=== PATIENT | male | born 1960 | race African-American/Black ===

== ENCOUNTER 2024-09-23 07:59 | Outpatient (AMB) | payer OTHER, MEDICARE, SELFPAY ==
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
[2024-09-23 08:05] VITALS: BMI 35.2
== END 2024-09-23 08:21 | disposition home or self-care (01) ==
PROVIDERS: Visit Provider Orthopaedic Surgery
DX: M25.512 Pain in left shoulder (principal)
CPT/HCPCS: 99213; G2211

== ENCOUNTER 2024-09-23 15:47 | Outpatient (REF) | payer OTHER, MEDICARE, SELFPAY | END 2024-09-23 15:48 | disposition home or self-care (01) | LOC: HO.HOSX 15:47 | PROVIDERS: Visit Provider Orthopaedic Surgery | DX: M75.42 Impingement syndrome of left shoulder (principal) | CPT/HCPCS: 73030 ==

== ENCOUNTER 2024-09-28 18:18 | Outpatient (REF) | payer OTHER, MEDICARE, SELFPAY | END 2024-09-28 18:19 | disposition home or self-care (01) | LOC: HO.MRI 18:18 | PROVIDERS: PCP Internal Medicine; Visit Provider Orthopaedic Surgery | DX: M25.312 Other instability, left shoulder (principal) | CPT/HCPCS: 73221 ==

== ENCOUNTER → 2024-09-28 18:18 | Outpatient (BNV) | payer OTHER, MEDICARE, SELFPAY | PROVIDERS: PCP Internal Medicine; Visit Provider Radiology Diagnostic Radiology | DX: M75.102 Unspecified rotator cuff tear or rupture of left shoulder, not specified as traumatic (principal); M19.012 Primary osteoarthritis, left shoulder | CPT/HCPCS: 73221 ==

== ENCOUNTER 2024-10-16 11:24 | Outpatient (AMB) | payer OTHER, MEDICARE, SELFPAY ==
--- NOTE | 2024-10-16 11:30 | MHC.OFFVIS ---
Vital Signs 10/16/24 11:31 Height 5 ft 10 in Weight 245 lb BMI 35.2 Intake Visit Reasons: Left shoulder pain Intake Note: Adonay is a 64 year old male who presents for follow-up of his left shoulder pain. The patient states that he did have a cortisone injection into his left shoulder in the past. The injection gave him fairly good relief but he found the injection to be quite painful. He continues to go to physical therapy. The patient states that he notices the pain in his shoulder mostly when he is sleeping on his left side. The patient states that he does not like taking pills for the pain. He has tried Tylenol and tramadol which gave him only mild relief. He is not able to take anti-inflammatory medicines because of kidney disease. Allergies morphine Allergy (Unknown, Verified 09/23/24 08:08) Unknown Medication List - Last Reconciled 10/16/24 by Lokesh Boles MD baclofen 10 mg PO BID chlorthalidone 25 mg PO DAILY cholecalciferol (vitamin D3) 50 mcg PO DAILY metformin 1,000 mg PO DAILY omeprazole 20 mg PO DAILY pioglitazone 45 mg PO DAILY semaglutide (Ozempic) mg subcut tadalafil 5 mg PO tamsulosin 0.4 mg PO DAILY valsartan 80 mg PO DAILY Physical Exam Vital Signs: BMI result Body Mass Index 35.2 Extrem Other: Left shoulder examination shows slightly decreased range of motion when compared to his right shoulder, 4+ out of 5 strength with supraspinatus testing, mild tenderness over his proximal humerus, no instability Results Reviewed Results Reviewed: MRI of the patient's left shoulder shows no evidence of rotator cuff tearing or labral tearing, mild to moderate acromioclavicular joint narrowing, signal change within the proximal humerus due to bone bruising Assessment & Plan Assessment & Plan (1) Left shoulder pain: Code(s): M25.512 - Pain in left shoulder Category: Medical Plan Mr. Celestin presents with left shoulder pain due to a bone bruise of his proximal humerus. I had a lengthy discussion with the patient regarding the treatment options. At this point there is no indication for surgical intervention. The patient can continue with his physical therapy exercises. He should avoid any exercises that cause significant discomfort. The do's and don'ts of lifting were discussed at length with the patient. The patient wishes to hold off on a cortisone injection for now. He will continue taking Tylenol or tramadol for his discomfort. He will follow up with me on an as-needed basis should his symptoms not plateau at an unacceptable level over the next few months. Feel free to call me at any time should questions regarding his orthopedic management arise. I spent 20 minutes in reviewing the patient's records and imaging studies, seeing the patient and documenting in the medical record. Coding Level of Care Code Est Pt Level 3 (57249) Complex EM visit Add On G2211 Diagnoses Left shoulder pain M25.512
[2024-10-16 11:31] VITALS: BMI 35.2
== END 2024-10-16 11:46 | disposition home or self-care (01) ==
PROVIDERS: PCP Internal Medicine; Visit Provider Orthopaedic Surgery
DX: M25.512 Pain in left shoulder (principal)
CPT/HCPCS: 99213; G2211

== ENCOUNTER → 2024-10-16 11:24 | Outpatient (BNVA) | payer OTHER, MEDICARE, SELFPAY | PROVIDERS: PCP Internal Medicine; Visit Provider Orthopaedic Surgery ==

== ENCOUNTER 2025-02-12 14:41 | Outpatient (AMB) | payer MEDICARE, MEDICAID, SELFPAY ==
[2025-02-12 14:44] VITALS: BP 152/88; BMI 36.3
--- NOTE | 2025-02-12 14:44 | A.OFFVIS_ITS ---
Vital Signs 02/12/25 14:44 Height 5 ft 10 in Weight 253 lb BMI 36.3 BP 152/88 H Blood Pressure Location Rt brachial Position Sitting Intake Visit Reasons: ENP - Tremors right hand Intake Note: Patient referred for tremors Allergies morphine Allergy (Unknown, Verified 02/12/25 14:48) Unknown Medication List - Last Reconciled 02/12/25 by Suzanne Tan MD baclofen 10 mg PO BID chlorthalidone 25 mg PO DAILY cholecalciferol (vitamin D3) 50 mcg PO DAILY metformin 1,000 mg PO DAILY omeprazole 20 mg PO DAILY pioglitazone 45 mg PO DAILY semaglutide (Ozempic) mg subcut tadalafil 5 mg PO tamsulosin 0.4 mg PO DAILY valsartan 80 mg PO DAILY HPI Comments Details: 64y/o Right handed male comes for evaluation of tremors. He started noticing action tremors in his Right hand especially when he is writing. The tremors are intermittent , worsens with stress , anxiety. He also notices when he is eating or drinking any activity that needs fine motor coordination. He has not noticed tremors in his left hand. He denies neck pain . His sister has a diagnosis of parkinsons. No problems with gait , no issues with memory . He has on and off sleep issues - frequent arousals , he has sleep apnea on CPAP. No known head or neck injury He denies any numbness or tingling. [facility] Medical History (Updated 02/12/25 @ 15:23 by Suzanne Tan MD) Focal dystonia MEDINA on CPAP Coarse tremors HTN (hypertension) Diabetes Surgical History H/O knee surgery Hx of appendectomy Family History Brother HTN (hypertension) Diabetes Sister Diabetes HTN (hypertension) Social History Alcohol intake: current Patient Tobacco Use Status: Never used Tobacco Physical Exam Vital Signs: Last Vital Signs BP 152/88 H 02/12/25 14:44 BMI result Body Mass Index 36.3 Const Orientation/consciousness: patient oriented x3 Eyes Pupils: Equal, round and reactive pupils present Neuro Other: Right forearm flexors are activated when he starts tow rite c/w possible focal dystonia General: patient oriented x3, gait normal, tone normal, moves all extremities and no focal motor deficits Cranial nerves: Yes Equal, round and reactive pupils present, Yes Bilaterally intact EOM present, Yes Nystagmus not present, Yes Normal facial strength present, Yes Midline tongue present, Yes Symmetric palate elevation present and Yes Ability to bilaterally elevate shoulders present Cognition (Neuro): normal cognition Gait exam (Neuro): Normal gait present Motor exam (neuro): 5/5 motor strength present throughout and Normal motor muscle tone present throughout Deep tendon reflexes (DTR's): Right triceps reflex intensity grade: 1+, Left triceps reflex intensity grade: 1+, Rt Biceps (C5, C6): 1+, Left biceps reflex intensity grade: 1+, Right brachioradialis reflex intensity grade: 1+, Left brachioradialis reflex intensity grade: 1+, Right patellar reflex intensity grade: 1+ and Left patellar reflex intensity grade: 1+ Coordination: [id number] test normal Assessment & Plan Assessment & Plan (1) Coarse tremors: Comment: likely a focal dystonia - writers cramp Code(s): G25.2 - Other specified forms of tremor Category: Medical (2) MEDINA on CPAP: Code(s): G47.33 - Obstructive sleep apnea (adult) (pediatric) Category: Medical Plan He is not sure if he is taking baclofen I will refer him for OT - hand therapy EMG Right UE to evaluate dystonia will consider botox. Orders: Orders OT Evaluation and Treatment Today G25.2 - Other specified forms of tremor NE nerve conduction velocity Today G24.8 - Other dystonia NE electromyogram (EMG) Today G24.9 - Dystonia, unspecified Coding Level of Care Code New Pt Level 4 (15771) Diagnoses Coarse tremors G25.2 MEDINA on CPAP G47.33
--- OUTSIDE RECORDS SUMMARY | 2025-02-12 15:29 | XMS_ITS | Encounter Summary ---
Author Organization [facility] Address [address] [facility] [address] [place] [address] Phone Care Team Providers Care Glue Jointer Operator Name Role Phone Tito Ritter MD Primary Care Provider [phone] Encounter Details Date Type Department Care Team (Late Contact Info) Description 01/31/2021 Orders Only [facility] [address] [facility] [address] [place] [id number] Provider, MD Rosanna [address] [place], [place] [id number] Social History Tobacco Use Types Packs/Day Years Used Date Smoking Tobacco: Former Alcohol Use Standard Drinks/Week Comments Yes 0 (1 standard drink = 0.6 oz pure alcohol) Alcoholic Drinks/day: Occasional social drink Sex and Gender Information Value Date Recorded Sex Assigned at Not on file Legal Sex Male 4:51 PM EST Gender Identity Not on file Sexual Orientation Not on file documented as of this encounter Plan of Treatment Upcoming Encounters Date Type Department Care Team (Late Contact Info) Description 04/27/2025 10:15 AM EDT Office Visit [facility] [address] [id number] Mary Hayden ARNP [address] [phone] documented as of this encounter Procedures Procedure Name Priority Date/Time Associated Diagnosis Comments EXT RESULT ENTRY Routine 12/29/2020 EXT RESULT ENTRY Routine 12/22/2020 documented in this encounter Results * EXT RESULT ENTRY (12/29/2020) us Historical Provider LAB BLOOD ORDERABLES Ciara l Result * EXT RESULT ENTRY (12/22/2020) us Historical Provider LAB BLOOD ORDERABLES Ciara l Result documented in this encounter Visit Diagnoses Not on filedocumented in this encounter Care Teams Glue Jointer Operator Relationship Specialty Start Date End Date Tito Ritter MD [address] [place] [address] PCP - General 10/11/20 documented as of this encounter
--- OUTSIDE RECORDS SUMMARY | 2025-02-12 15:29 | XMS_ITS | Clinical Summary ---
Author Organization [address] Address [address] [place], [place] Phone Care Team Providers Care Trauma Therapist Name Role Phone Tito Ritter MD Primary Care Provider [phone] Allergies Active Allergy Reactions Criticality Noted Date Comments Empagliflozin Rash Low 05/28/2023 Lisinopril Swelling High 07/15/2020 Lips swollen / side of face 07/05/20/ [facility] urgent care Morphine Hallucinations,Other 12/01/2020 Medications lidocaine (LIDODERM) 5 % patch Apply 1 patch topically. 4 Active tamsulosin (FLOMAX) 0.4 mg 24 hr capsule Take 1 Capsule by mouth daily. Take 30 mins after same meal every day. 0 Active cholecalciferol (VITAMIN D-3) 50 mcg (2,000 unit) tablet Take 1 tablet (2,000 Units total) by mouth 1 (one) time each day. 4 Active tadalafiL (CIALIS) 5 mg tablet TAKE 1 TABLET BY MOUTH 45 MINUTES BEFORE INTENDED ACTIVITY 1 Active diclofenac (VOLTAREN) 1 % topical gel Apply 1 g topically 3 times daily as needed (pain). 3 Active blood sugar diagnostic (FreeStyle Lite Strips) test strip Inject 1 Device into the skin daily. 2 Active FREESTYLE LANCETS MISC 1 Each by Does not apply route daily 2 Active atorvastatin (LIPITOR) 40 mg tablet Take 1 tablet (40 mg total) by mouth 1 (one) time each day. 2 Active alcohol swabs pads, medicated Alcohol Swabs (Alcohol Pads) 70 % Pads 1 Each by Does not apply route 4 times daily. 2 Active blood-glucose meter kit Use to test blood sugar daily 2 Active valsartan (DIOVAN) 40 mg tablet Take 1 tablet (40 mg total) by mouth 1 (one) time each day. Active omeprazole (PriLOSEC) [address] capsule Take 1 capsule by mouth once daily 90 capsule 1 5 Active chlorthalidone (HYGROTON) 25 mg tablet Take 1 tablet by mouth once daily 90 tablet 1 5 Active metFORMIN (GLUCOPHAGE) 1,000 mg tablet 1 tab daily with breakfast 5 Active semaglutide (Ozempic) 2 mg/dose (8 mg/3 mL) injection pen Inject 2 mg under the skin every 7 (seven) days. 3 mL 11 5 Active Active Problems Problem Noted Date Diagnosed Date Ascending aorta dilation (CMS/HCC V24) 5 Overview (01/05/2025): - 4.1cm 11/2023 Assessment & Plan (01/05/2025 12:31 PM EDT): The patient's ascending aorta size has been stable across multiple echos. Follow on upcoming echo that has been ordered. Chest pain 10/16/2023 COVID 02/23/2023 Overview (08/21/2024): Positive covid home test 02/23/23 Valvular incompetence 01/24/2021 Overview (01/05/2025): - Historically reported mod-severe AI - cath showed only mild to moderate AI - echo 11/2023 showing normal LVEF 60 to 65%, mild concentric LVH, no wall motion abnormalities, normal LV size, trace to mild AI, aortic sclerosis without stenosis with aortic root likely at upper limits of normal for body surface area 3.9 cm, ascending aorta measuring anywhere from 4 to 4.1 cm, all similar to echocardiogram 11/2021 Assessment & Plan (01/05/2025 12:29 PM EDT): The patient's AI was not significant on his last echo in 2023. Will update his echo to follow his AI. He does not have any symptoms referable to AI. Nephrotic syndrome 10/17/2018 Terminal ileitis ([facility] V24, [facility] V28) 05/02 Lipoma 04/26/2018 Esophageal stricture 04/17/2018 Malignant carcinoid tumor of appendix ([facility] V24, [facility] V28) 04/16/2018 Eczema 03/13/2018 Diverticulosis 03/13/2018 Type 2 diabetes mellitus wit hout complication ([facility] V24, [facility] V28) 03/13/2018 Chronic atrophic gastritis 12/18/2017 Hypoalbuminemia 11/20/2017 Constipation 10/23/2017 Hyperlipidemia 09/14/2017 Assessment & Plan (01/05/2025 12:30 PM EDT): Well controlled lipid profile on current dose statin. Continue Hypertension 09/14/2017 Assessment & Plan (01/05/2025 12:28 PM EDT): Patient's blood pressure is somewhat robust in office today, but overall better controlled on chart review. Recommend increasing his exercise/focus movement and following his blood pressure. If needed, could increase his valsartan to 80 mg daily for better blood pressure control AAA (abdominal aortic aneurysm) ([facility] V24) MEDINA (obstructive sleep apnea) 09/14/2017 Aortic insufficiency 09/14/2017 Overview (08/21/2024): Hospitalized 08/2017 for CP and AI: ECHO PVCA: LVEF 60-65%, mod-severe AI, 1+ MR,ascending aorta size 3.8 cm, tansverse aorta 3.2 cm, LV end diastolic dimension 51cm, LV systolic diameter was 3.[address] Franki Hook [facility] no obstructive CAD, mild- mod AR GERD (gastroesophageal reflux disease) 7 Irritable bowel syndrome 11/14/2013 Severe obesity (BMI 35.0-35. 9 with comorbidity) ([facility] V24, [facility] V28) Encounters Date Type Department Care Team Description 01/05/2025 9:10 AM EDT Office Visit [facility] - [facility] [address] [place] [address] Lorraine Redman NP Ascending aorta dilation ([facility] V24) (Primary Dx); Primary hypertension; Pure hypercholesterolemia; Nonrheumatic aortic valve insufficiency; Valvular incompetence 12/23/2024 9:30 AM EDT Office Visit Endocrinology - [address] [phone] Leanne Singh PA Type 2 diabetes mellitus without complication, with long-term current use of insulin ([facility] V24, [facility] V28) (Primary Dx) 12/12/2024 10:00 AM EDT Telemedicine Internal Medicine - [address] [phone] Encounter for subsequent annual wellness visit (AWV) in Medicare patient (Primary Dx) 12/02/2024 Telephone Endocrinology - [id number] [place] [phone] Leanne Singh PA PRIOR AUTHORIZATION from Last 3 Months Immunizations Name Administration Dates Next Due Influenza trivalent, 0.5mL (Fluad) 65yo and olde r 06/16/2024 Tauntr SARS-CoV-2 COVID-19, mRNA, LNP-S, preservative free 12/08/2020,11/17/2020 Tdap Tetanus diptheria acell ular pertussis (Boostrix; Adacel) 7yo and older 03/23/2011 Surgical History Surgery Date Site/Laterality Comments CARDIAC CATHETERIZATION PROCEDURE: HISTORICAL CARDIAC CATH; COMMENT: no obstructive disease , Dr Hook , ? 2017 KNEE ARTHROSCOPY W/ DEBRIDEMENT PROCEDURE: DE ARTHRS KNEE DEBRIDEMENT/SHAVING ARTCLR CRTLG TOTAL KNEE ARTHROPLASTY Right PROCEDURE: DE ARTHRP KNE CONDYLE&PLATU MEDIAL&LAT COMPARTMENTS Medical History Medical History Date Comments AAA (abdominal aortic aneury sm) ([facility] V24) 09/14/2017 DX:AAA (abdominal aortic ane urysm) ([facility]) Aortic insufficiency 09/14/2017 DX:Aortic i nsufficiency; COMMENT: Hospitalized 08/2017 for CP and AI: ECHO PVCA: LVEF 60-65%, mod-severe AI, 1+ MR,ascending aorta size 3.8 cm, tansverse aorta 3.2 cm, LV end diastolic dimension 51cm, LV systolic diameter was 3.[address] Franki Hook [facility] no obstructive CAD, mild- mod AR GERD (gastroesophageal reflux disease) 7 DX:GERD (gastroesophageal reflux disease) History of diverticulitis 09/14/2017 DX:His tory of diverticulitis Hyperlipidemia 09/14/2017 DX:Hyperlipidemi a Hypertension 09/14/2017 DX:Hypertension MEDINA (obstructive sleep apnea) 09/14/2017 DX :MEDINA (obstructive sleep apnea) Type 2 diabetes mellitus wit hout complication ([facility]/HCC V24, CMS/HCC V28) 03/13/2018 DX:Type 2 diabetes mellitus without complication (HCC) Terminal ileitis (CMS/HCC V2 4, CMS/HCC V28) 05/22/2018 DX:Terminal ileitis (HCC) Nephrotic syndrome 10/17/2018 DX:Nephrotic syndrome Malignant carcinoid tumor of appendix (CMS/[facility] V24, [facility] V28) 04/16/2018 DX:Malignant carcinoid tumo r of appendix (HCC) Lipoma 04/26/2018 DX:Lipoma Irritable bowel syndrome 11/14/2013 DX:Irri table bowel syndrome Hypoalbuminemia 11/20/2017 DX:Hypoalbuminem ia Esophageal stricture 04/17/2018 DX:Esophage al stricture Eczema 03/13/2018 DX:Eczema Diverticulosis 03/13/2018 DX:Diverticulosi s Constipation 10/23/2017 DX:Constipation Chronic atrophic gastritis 12/18/2017 DX:Ch ronic atrophic gastritis Family History Medical History Relation Name Comments Stroke Brother x8 3 No Known Problems Daughter x2 Prostate cancer Father Heart failure Mother Breast cancer Other 1 Dementia Other 1 Diabetes Other 1 No Known Problems Son x2 Relation Name Status Comments Brother x8 3 Other Daughter x2 Alive Father Mother Other 1 Alive Sister x4 Alive Son x2 Alive Social History Tobacco Use Types Packs/Day Years Used Date Smoking Tobacco: Former Smokeless Tobacco: Never Tobacco Cessation:Counseling Given: Not Answered Alcohol Use Standard Drinks/Week Comments Yes 0 (1 standard drink = 0.6 oz pur e alcohol) socially Housing Instability Answer Date Recorde d Are you worried that in the next 2 months you may not have stable housing? No 12/12/2024 Food Access & Nutrition Answer Date Rec orded Do you have access to a vari ety of food including fruits and vegetables? Yes 12/12/2024 Health Literacy Answer Date Recorded How often do you need to hav e someone help you when you read instructions, pamphlets, or other written material from your doctor or pharmacy? Never 12/12/2024 Caregiver: How often do you need to have someone help you when you read instructions, pamphlets, or other written material from your doctor or pharmacy? Not on file 12/12/2024 Financial Risk Answer Date Recorded How hard is it for you to pa y for the very basics like food, housing, medical care, and air conditioning / heating? Not very hard 12/12/2024 Transportation Answer Date Recorded Has the lack of transportati on kept you from meetings, work, or from getting things needed for daily living? No Has the lack of transportati on kept you from medical appointments or from getting medications? No 12/12/2024 Social Isolation Answer Date Recorded How often do you feel lonely or isolated from th ose around you? Never 12/12/2024 Food Risk Answer Date Recorded Within the past 12 months we worried whether our food would run out before we got money to buy more. Never true 12/12/2024 Within the past 12 months th e food we bought just didn't last and we didn't have money to get more. Never true 12/12/2024 Dependent Care Answer Date Recorded Do you need help finding or paying for care for your loved ones. For example, special needs child caregiver or elderly care for an older adult? No 12/12/2024 Education Answer Date Recorded Do you think completing more education or training, like finishing a GED, going to college, or learning a trade, would be helpful for you? No 12/12/2024 Employment and Income Answer Date Recor ded During the last four weeks, have you been actively looking for work? No 12/12/2024 Living Situation Answer Date Recorded What is your living situation? 0 12/12/2024 Sex and Gender Information Value Date Recorded Sex Assigned at Not on file Legal Sex Male 11:32 PM EST Gender Identity Not on file Sexual Orientation Not on file Obstetrics History Last Filed Vital Signs Vital Sign Reading Time Taken Comments Blood Pressure 138/86 01/05/2025 9:06 AM EDT Pulse 75 01/05/2025 9:06 AM EDT Temperature 36.6 ??C (97.9 ??F) 12/23/2024 9:35 AM ED T Respiratory Rate 14 12/23/2024 9:35 AM EDT Oxygen Saturation 98% 01/05/2025 9:06 AM EDT Inhaled Oxygen Concentration - - Weight 115 kg (254 lb 6.4 oz) 01/05/2025 9:06 AM EDT Height 177.8 cm (5' 10 ) 01/05/2025 9:06 AM EDT Body Mass Index 36.5 01/05/2025 9:06 AM EDT Plan of Treatment Upcoming Encounters Date Type Department Care Team (Late st Contact Info) Description 03/25/2025 10:30 AM EDT Ancillary Procedure [facility] - [address] [place] [address] 06/25/2025 9:30 AM EDT Office Visit Endocrinology - [id number] [place] [phone] Leanne Singh PA [address] [place] [address] Health Maintenance Due Date Last Done Comments Pneumococcal Vaccine: 50+ Years (1 of 2 - PCV) 1977 RSV Immunization Adult Patients (1 - Risk 60-74 years 1-dose series) 2018 DTaP,Tdap,and Td Vaccines (2 - Td or Tdap) 03/23/2021 03/23/2011 Hepatitis C Screening 09/09/2022 Zoster Vaccines (2 of 2) 10/03/2023 08/08/2023 COVID-19 Vaccine ( season) 2024 09/04/2023, 02/11/2022, 08/09/2021, Additional history exists Diabetes: Annual Foot Exam 11/23/2024 11/23/2023 Diabetes: Annual Retina Eye Exam 06/24/2025 06/24/2024 Diabetes: Blood Sugar Control Test (HGBA1C) 06/28/2025 12/26/2024, 06/09/2024, 06/09/2024, Additional history exists Depression Screening 12/12/2025 12/12/2024, 10/29/19 24 Falls Risk Assessment 12/12/2025 12/12/2024, 024 Medicare Annual Wellness Visit 12/12/2025 12/12/2024 Social Influencers of Health Screening 12/12/2025 12/12/2024 Diabetes: Annual Urine Albumin-Creatinine Ratio (uACR) 12/26/2025 12/26/2024, 06/09/2024 Diabetes: Annual GFR (Glomerular Filtration Rate) 12/26/2025 12/26/2024, 12/26/2024, 06/09/2024, Additional history exists Hypertension/CHF/CAD Annual BMP Blood Test 12/26/2025 12/26/2024, 12/26/2024, 06/09/2024, Additional history exists Cholesterol Screening (Lipid Panel) 12/26/2029 12/26/2024, 06/09/2024, 06/09/2024 Colorectal Cancer Screening: Colonoscopy 04/20/2031 04/20/2021 Influenza Vaccine Completed 06/16/2024, , 06/18/2022, Additional history exists HIB Vaccines Aged Out No longer eligi ble based on patient's age to complete this topic HPV Vaccines Aged Out No longer eligi ble based on patient's age to complete this topic Hepatitis A Vaccines Aged Out No long er eligible based on patient's age to complete this topic Hepatitis B Vaccines Aged Out No long er eligible based on patient's age to complete this topic IPV Vaccines Aged Out No longer eligi ble based on patient's age to complete this topic MMR Vaccines Aged Out No longer eligi ble based on patient's age to complete this topic Meningococcal ACWY Vaccine Aged Out N o longer eligible based on patient's age to complete this topic Meningococcal B Vaccine Aged Out No l onger eligible based on patient's age to complete this topic RSV Immunization Patients Under 20 months Aged Out No longer eligible based on patient's age to complete this topic Varicella Vaccines Aged Out No longer eligible based on patient's age to complete this topic Procedures Procedure Name Priority Date/Time Associated Diagnosis Comments ECG 12-LEAD Routine 01/05/2025 12:31 PM EDT Primary hypertension HEMOGLOBIN A1C Routine 12/26/2024 10:04 AM EDT Type 2 diabetes mellitus without complication, with long-term current use of insulin ([facility] V24, CMS/[facility] V28) LIPID PANEL WITH REFLEX TO DIRECT LDL Routine 12/26/2024 10:04 AM EDT Type 2 diabetes mellitus without complication, with long-term current use of insulin ([facility] V24, CMS/[facility] V28) BASIC METABOLIC PANEL Routine 12/26/2024 10:04 AM EDT Essential hypertension, malignant MICROALBUMIN CREATININE URINE RATIO Routine 12/26/2024 10:04 AM EDT Type 2 diabetes mellitus without complication, with long-term current use of insulin (CMS/[facility] V24, CMS/[facility] V28) POC GLUCOSE Routine 12/23/2024 9:41 AM EDT Type 2 diabetes mellitus without complication, with long-term current use of insulin ([facility] V24, CMS/[facility] V28) DIABETES EYE EXAM Routine 06/24/2024 FALLS RISK ASSESSMENT Routine 12/19/2023 DIABETES FOOT EXAM Routine 11/23/2023 DEPRESSION SCREENING Routine 10/29/2023 COLONOSCOPY Routine 04/20/2021 from Last 3 Months or Most Recently Relevant to Health Maintenance Results * ECG 12 lead (01/05/2025 12:31 PM EDT) [facility] Signature Ventricular Rate ECG 75 BPM GEMUSE Atrial Rate 75 BPM GEMUSE P-R Interval 194 ms GEMUSE QRS Duration 94 ms GEMUSE Q-T Interval 340 ms GEMUSE QTc 379 ms GEMUSE P Wave [place] 66 degrees GEMUSE R [place] 54 degrees GEMUSE T [place] 5 degrees GEMUSE ECG Interpretation Normal sinus rhythm Minimal voltage criteria for LVH, may be normal variant ST and T wave abnormality , consider inferior ischemia Abnormal ECG asymptomati c unchanged when compared to prior EKGs Confirmed by Tc PAK YUFENG ([id number]) on 01/06/2025 10:20:56 AM GEMUSE 01/05/2025 9:12 AM EDT 01/06/2025 10:20 AM EDT us Lorraine Redman NP ECG ORDERABLES Edited Result - Final GEMUSE * Lipid panel with reflex to direct LDL (12/26/2024 10:04 AM EDT) Cholesterol 134 0 - 200 mg/dL LAB CHEMISTRY METHOD 12/26/2024 1:08 PM EDT [facility] Triglycerides 64 0 - 150 mg/dL LAB CHEMISTRY METHOD 12/26/2024 1:08 PM EDT [facility] HDL 48 >=40 mg/dL LAB CHEMISTRY METHOD 12/26/2024 1:08 PM EDT [facility] LDL Calculated 73 0 - 100 mg/dL LAB CHEMISTRY METHOD 12/26/2024 1:08 PM EDT [facility] VLDL Cholesterol Venu 12.8 mg/dL LAB CHEMISTRY METHOD 12/26/2024 1:08 PM EDT [facility] Non HDL Chol. (LDL+VLDL) 86 <145 mg/dL LAB CHEMISTRY METHOD 12/26/2024 1:08 PM EDT [facility] Chol/HDL Ratio 2.8 0.0 - 4.4 LAB CHEMISTRY METHOD 12/26/2024 1:08 PM EDT [facility] Blood Venous blood specimen / Unknown Venipuncture / Unknown 12/26/2024 10:04 AM EDT 12/26/2024 10:04 AM EDT us Leanne HAJI LAB BLOOD ORDERABLES Final Result Performing Organization Address [facility]/ZIP Co de Phone Number [facility] [address] [place] [address], [place] [phone] * (ABNORMAL) Microalbumin creatinine urine ratio (12/26/2024 10:04 AM EDT) Creatinine, Urine 279.0 mg/dL LAB CHEMISTRY METHOD 12/26/2024 3:27 PM EDT [facility] Microalb, Ur 55.2(H) 0.0 - 29.0 mg/L LAB CHEMISTRY METHOD 12/26/2024 3:27 PM EDT [facility] Microalb/Crea t Ratio 20 <30 mg/g creat LAB CHEMISTRY METHOD 12/26/2024 3:27 PM EDT [facility] Urine Urine specimen from urethra / Unknown Non-blood Collection / Unknown 12/26/2024 10:04 AM EDT 12/26/2024 10:04 AM EDT Leanne HAJI LAB URINE ORDERABLES Final Result Performing Organization Address [facility] Co de Phone Number [facility] [address] [place] [address], [place] [phone] * (ABNORMAL) Hemoglobin A1c (12/26/2024 10:04 AM EDT) Hemoglobin A1C 7.7(H) <6.5 % LAB CHEMISTRY METHOD 12/26/2024 12:42 PM EDT [facility] Mean Bld Glu Estim. 174 mg/dL LAB CHEMISTRY METHOD 12/26/2024 12:42 PM EDT [facility] Blood Venous blood specimen / Unknown Venipuncture / Unknown 12/26/2024 10:04 AM EDT 12/26/2024 10:04 AM EDT us Leanne HAJI LAB BLOOD ORDERABLES Final Result [facility] [address] [place] [address], * (ABNORMAL) Basic metabolic panel (12/26/2024 10:04 AM EDT) Sodium 135 133 - 145 mmol/L LAB CHEMISTRY METHOD 12/26/2024 1:08 PM EDT [facility] Potassium 3.9 3.5 - 5.5 mmol/L LAB CHEMISTRY METHOD 12/26/2024 1:08 PM [facility] Chloride 103 96 - 110 mmol/L LAB CHEMISTRY METHOD 12/26/2024 1:08 PM [facility] CO2 27 21 - 32 mmol/L LAB CHEMISTRY METHOD 12/26/2024 1:08 PM [facility] Anion Gap 5 3 - 11 LAB CHEMISTRY METHOD 12/26/2024 1:08 PM [facility] Glucose 140(H) 70 - 100 mg/dL LAB CHEMISTRY METHOD 12/26/2024 1:08 PM [facility] BUN 15 5 - 25 mg/dL LAB CHEMISTRY METHOD 12/26/2024 1:08 PM [facility] Creatinine 1.07 0.70 - 1.30 mg/dL LAB CHEMISTRY METHOD 12/26[facility]2024 [facility] e[facility] 77 >=60 mL/min/1. 73m2 LAB CHEMISTRY METHOD 12/26/2024 1:08 PM [facility] Comment:Calculation based on the??Chronic Kidney Disease Epidemiology Collaboration (CKD-EPI) equation refit??without adjustment for race. BUN/Creatinine Ratio 14.0 LAB CHEMISTRY METHOD 12/26/2024 1:08 PM [facility] Calcium 9.3 8.5 - 10.5 mg/dL LAB CHEMISTRY METHOD 12/26/2024 1:08 PM [facility] Blood Venous blood specimen / Unknown Venipuncture / Unknown 12/26/2024 10:04 AM EDT 12/26/2024 10:04 AM EDT Mary Hayden [employer] LAB BLOOD ORDERABLES Final [facility] [address] [place] [address], * POC glucose manually resulted (12/23/2024 9:41 AM EDT) [facility] Glucose POC 111 mg/dL Blood Capillary blood specimen / Unknown 12/23/2024 9:41 AM EDT Result [facility] Leanne HAJI POINT OF CARE TEST ENTER/ED IT ORDERABLES Final Result * Diabetes Eye Exam (06/24/2024) Pathologist [facility] Diabetes: Annual Retina Eye Exam Abstracted Historical Provider HEALTH MAINTENANCE Final Result * Falls Risk Assessment (12/19/2023) [facility] Falls Risk Assessment Abstracted Result [facility] Provider HEALTH MAINTENANCE Final Result * Diabetes Foot Exam (11/23/2023) [facility] Diabetes: Annual Foot Exam Abstracted Result [facility] Provider HEALTH MAINTENANCE Final Result * Depression Screening (10/29/2023) [facility] Depression Screening Abstracted Result [facility] Historical Provider HEALTH MAINTENANCE Final Result * Colonoscopy (04/20/2021) [facility] Colonoscopy No Interpretation , Abstracted Anatomical Region Laterality Modality Other Historical Provider HEALTH MAINTENANCE Final Result from Last 3 Months or Most Recently Relevant to Health Maintenance Insurance MEDICAID - [place] MEDICARE Care Teams Trauma Therapist Relationship Specialty Start Date End Date Tito Ritter MD [address] [place] [id number] PCP - General Internal Medicine 10/06/24
--- OUTSIDE RECORDS SUMMARY | 2025-02-12 15:29 | XMS_ITS | Clinical Summary ---
Author Organization [facility] Address [address] [place] [phone] Phone Care Team Providers Care Brick Shader Name Role Phone Tito Ritter MD Primary Care Provider [phone] Allergies Active Allergy Reactions Criticality Noted Date Comments Empagliflozin Rash Low 05/28/2023 Lisinopril Swelling High 07/15/2020 Lips swollen / side of face 07/05/20/ [facility] urgent care Morphine Other (see comments) 12/01/2020 Medications atorvastatin (LIPITOR) 40 MG tablet Take 1 tablet by mouth 1 (one) time each day Active metFORMIN (GLUCOPHAGE) 1000 MG tablet 1 Active omeprazole (PriLOSEC) [address] capsule Take 1 capsule by mouth every morning Active tamsulosin (FLOMAX) 0.4 MG 24 hr capsule Take 1 capsule by mouth at bed time 0 Active gabapentin (NEURONTIN) 600 MG tablet Take 600 mg by mouth 3 times a day 1 Active tadalafil (CIALIS) 5 MG tablet TAKE 1 TABLET BY MOUTH 45 MIN BEFORE ACTIVITY. DO NOT EXCEED MAXIMUM DOSE INSTRUCTED DR. CRUZ 1 Active hydrocortisone 2.5 % ointment 1 Active Semaglutide,0.2 5 or 0.5MG/DOS, (Ozempic, 0.25 or 0.5 MG/DOSE,) 2 MG/1.5ML solution pen-injector Inject under the skin Active Cholecalciferol (Vitamin D3) 50 MCG (2000 UT) tabletIndicatio ns:Vitamin D deficiency, not otherwise specified Take 2,000 Units by mouth 1 (one) time each day 30 tablet 5 4 03/02/20 25 Active chlorthalidone 25 MG tablet Take 25 mg by mouth in the morning. 3 Active valsartan (Diovan) 160 MG tabletIndicatio ns:Hypertension Take 1 tablet (160 mg total) by mouth 1 (one) time each day 30 tablet 3 5 04/26/20 25 Active Active Problems Problem Noted Date Diagnosed Date Hypo-osmolality and hyponatremia 10/28/2024 Vitamin D deficiency, not otherwise specified Type 2 diabetes mellitus with hyperglycemia 11/2020 Hypertension 12/01/2020 Nephrotic syndrome 12/01/2020 Resolved Problems Problem Noted Date Diagnosed Date Resolved Date Hyperlipidemia 12/01/2020 02/13/2022 Hypoalbuminemia 12/01/2020 02/13/2022 Family History Medical History Relation Comments Hypertension Father Heart disease Mother Hypertension Mother Cancer Sibling 1 Diabetes Sibling 2 Heart disease Sibling 3 Hypertension Sibling 4 Relation Status Comments Father Mother Sibling 1 Sibling 2 Sibling 3 Sibling 4 Social History Tobacco Use Types Packs/Day Years Used Date Smoking Tobacco: Former Smokeless Tobacco: Never Tobacco Cessation:Counseling Given: No Alcohol Use Standard Drinks/Week Comments Yes 0 (1 standard drink = 0.6 oz pure alcohol) Alcoholic Drinks/day: Occasional social drink Sex and Gender Information Value Date Recorded Sex Assigned at Not on file Legal Sex Male 4:51 PM EST Gender Identity Not on file Sexual Orientation Not on file Last Filed Vital Signs Vital Sign Reading Time Taken Comments Blood Pressure 140/82 10/28/2024 9:31 AM EST Pulse 83 10/28/2024 8:58 AM EST Temperature - - Respiratory Rate - - Oxygen Saturation 98% 10/28/2024 8:58 AM EST Inhaled Oxygen Concentration - - Weight 113 kg (250 lb) 10/28/2024 8:58 AM EST Height 177.8 cm (5' 10 ) 02/19/2023 3:00 PM EDT Body Mass Index 35.87 02/19/2023 3:00 PM EDT Plan of Treatment Upcoming Encounters Date Type Department Care Team (Late st Contact Info) Description 04/27/2025 10:15 AM EDT Office Visit [facility] [address] [phone] Mary Hayden ARNP [address] [phone] Health Maintenance Due Date Last Done Comments Pneumococcal Vaccine: 50+ Years (1 of 2 - PCV) 1977 Colorectal Cancer Screening: Annual FOBT 2007 Colorectal Cancer Screening: Colonoscopy 2007 Colorectal Cancer Screening: Sigmoidoscopy 2007 Diabetes: Ophthalmology Exam 08/03/2021 Diabetes: Pedal Pulse Checked 08/03/2021 Diabetes: Sensory Foot Exam 08/03/2021 Diabetes: Visual Foot Exam 08/03/2021 Diabetes: Hemoglobin A1C 09/08/2024 024, 04/09/2024, 05/16/2023, Additional history exists Influenza Vaccine Completed 06/16/2024 Hepatitis B Vaccine Aged Out No longe r eligible based on patient's age to complete this topic Procedures Procedure Name Priority Date/Time Associated Diagnosis Comments BASIC METABOLIC PANEL Routine 12/26/2024 10:04 AM EDT Hypertension HEMOGLOBIN A1C Routine 04/09/2024 10:40 AM EDT Hypertension Hypo-osmolality and hyponatremia Type 2 diabetes mellitus with diabetic chronic kidney disease (HCC) from Last 3 Months or Most Recently Relevant to Health Maintenance Results * (ABNORMAL) Basic metabolic panel (12/26/2024 10:04 AM EDT) Sodium 135 133 - 145 mmol/L [facility] Potassium 3.9 3.5 - 5.5 mmol/L [facility] Chloride 103 96 - 110 mmol/L [facility] Bicarbonate (CO2) 27 21 - 32 mmol/L [facility] Anion Gap 5 3 - 11 [facility] Glucose 140(H) 70 - 100 mg/dL [facility] BUN 15 5 - 25 mg/dL [facility] Creatinine Serum 1.07 0.70 - 1.30 mg/dL [facility] eGFR 77 >=60 mL/min/1. 73m2 [facility] Comment:Calculation based on the?Chronic Kidney Disease Epidemiology Collaboration (CKD-EPI) equation refit?without adjustment for race. BUN/Creatinine Ratio 14.0 [facility] Calcium 9.3 8.5 - 10.5 mg/dL [facility] Blood (Blood, Venous) 12/26/2024 10:04 AM EDT 12/26/2024 11:14 AM EDT [facility] BLOOD ORDERABLES Final Result Performing Organization Address [facility]/ZIP Co de Phone Number [facility] [address] [place] [address] * (ABNORMAL) Hemoglobin A1c (04/09/2024 10:40 AM EDT) Hemoglobin A1C 6.5(H) 4.8 - 5.6 % [facility] Comment: ? Prediabetes: 5.7 - 6.4 ? Diabetes: >6.4 ? Glycemic control for adults with diabetes: <7.0 Blood (Blood, Venous) 04/09/2024 10:40 AM EDT 04/09/2024 [facility] BLOOD ORDERABLES Final Result [facility] [address] [place] [phone] from Last 3 Months or Most Recently Relevant to Health Maintenance Insurance Medicare Medicaid [place] Medicare [place] Care Teams Brick Shader Relationship Specialty Start Date End Date Tito Ritter MD [address] [place] [id number] [facility] - General 10/11/20
== END 2025-02-12 15:20 | disposition home or self-care (01) ==
PROVIDERS: PCP Internal Medicine; Visit Provider Psychiatry & Neurology Neurology
DX: G25.2 Other specified forms of tremor (principal); G47.33 Obstructive sleep apnea (adult) (pediatric)
CPT/HCPCS: 99204

== ENCOUNTER → 2025-02-12 14:41 | Outpatient (BNVA) | payer MEDICARE, MEDICAID, SELFPAY | PROVIDERS: PCP Internal Medicine; Visit Provider Psychiatry & Neurology Neurology | DX: G25.2 Other specified forms of tremor (principal); G24.8 Other dystonia; G47.33 Obstructive sleep apnea (adult) (pediatric) | CPT/HCPCS: 99202 ==

== ENCOUNTER 2025-03-25 10:09 | Outpatient (REF) | payer MEDICARE, MEDICAID, SELFPAY ==
--- NOTE | 2025-03-25 10:12 | EMG_ITS ---
Chief complaint: Right hand tremors, denies numbness Reason for referral: Tremors Referred by: Dr. Tan Procedure done: Right upper extremity NCS/EMG Precautions and/or limitations: None The limb temperature was monitored continuously and remained between 32-36 degrees C during the performance of the NCS. Nerve Conduction Studies Anti Sensory Summary Table ?Stim Site NR Onset (ms) Norm Onset (ms) Peak (ms) Norm Peak (ms) O-P Amp (?V) Norm O-P Amp Site1 Site2 Delta-0 (ms) Dist (cm) Home (m/s) Norm Home (m/s) Right Median Anti Sensory (2nd Digit) Wrist ? 2.8 3.7 <3.6 11.7 >10 Wrist 2nd Digit 2.8 14.0 50 Right Ulnar Anti Sensory (5th Digit) Wrist ? 1.7 3.4 <3.7 32.2 >15.0 Wrist 5th Digit 1.7 14.0 82 Motor Summary Table ?Stim Site NR Onset (ms) Norm Onset (ms) O-P Amp (mV) Norm O-P Amp iAmp (mV) Amp (1st) (%) Site1 Site2 Delta-0 (ms) Dist (cm) Home (m/s) Norm Home (m/s) Right Median Motor (Abd Poll Brev) Wrist ? 3.6 <3.9 11.7 >4.5 14.5 100.0 Elbow Wrist 5.0 24.0 48 >45 Elbow ? 8.6 9.7 11.9 82.9 Right Ulnar Motor (Abd Dig Minimi) Wrist ? 2.8 <3.0 6.3 >5 7.9 100.0 B Elbow Wrist 4.0 23.5 59 >45 B Elbow ? 6.8 5.0 6.4 79.4 A Elbow B Elbow 1.5 10.0 67 >45 A Elbow ? 8.3 4.8 6.1 76.2 Comparison Summary Table ?Stim Site NR Peak (ms) Norm Peak (ms) P-T Amp (?V) Site1 Site2 Delta-P (ms) Norm Delta (ms) Right Median/Radial Dig I Comparison (Digit 1 - 10cm) Median ? 2.9 <2.9 0.1 Median Radial 0.1 Radial ? 2.8 <2.8 5.0 EMG ?Side Muscle Nerve Root Ins Act Fibs Psw Amp Dur Poly Recrt Int Pat Comment Right 1stDorInt Ulnar C8-T1 Nml Nml Nml Nml Nml 0 Nml Complete Right FlexCarRad Median C6-7 Nml Nml Nml Nml Nml 0 Nml Complete Right Biceps Musculocut C5-6 Nml Nml Nml Nml Nml 0 Nml Complete Right Triceps Radial C6-7-8 Nml Nml Nml Nml Nml 0 Nml Complete Right Deltoid Axillary C5-6 Nml Nml Nml Nml Nml 0 Nml Complete FINDINGS: Right median sensory nerve showed slightly prolonged peak latency. All other nerves tested were within normal. Concentric needle EMG was performed in selected muscles of the right upper extremity. Study did not reveal signs of electric abnormalities as shown in the table above. IMPRESSION: 1. This is an abnormal study. 2. There is electrodiagnostic evidence for right mild median neuropathy at the wrist, consistent with carpal tunnel syndrome. 3. There is no electrodiagnostic evidence for ulnar neuropathy, brachial plexopathy, or cervical radiculopathy. CLINICAL COMMENT: Right mild Carpal Tunnel Syndrome although patient denies numbness. Thank you for your kind referral. Rosy Rangel MD, LAURA Board Certified, [place] Board of Physical Medicine and Rehabilitation (ABPMR) Board Certified, [place] Board of Electrodiagnostic Medicine (ABEM) [facility] [id number] [facility]
--- OUTSIDE RECORDS SUMMARY | 2025-03-25 11:42 | XMS_ITS | Clinical Summary ---
Author Organization [facility] Address [address] [place] [phone] Phone Care Team Providers Care Appliance Tester Name Role Phone Tito Ritter MD Primary Care Provider [phone] Allergies Active Allergy Reactions Criticality Noted Date Comments Empagliflozin Rash Low 05/28/2023 Lisinopril Swelling High 07/15/2020 Lips swollen / side of face 07/05/20/ [facility] urgent care Morphine Other (see comments) [...] solution pen-injector Inject under the skin Active chlorthalidone 25 MG tablet Take 25 mg by mouth in the morning. 3 Active valsartan (Diovan) 160 MG tabletIndicatio ns:Hypertension Take 1 tablet (160 mg total) by mouth 1 (one) time each day 30 tablet 5 5 08/18/20 25 Active Cholecalciferol (Vitamin D3) 50 MCG (1999) tabletIndicatio ns:Vitamin D deficiency, not otherwise specified Take 2,000 Units by mouth 1 (one) time each day 30 tablet 5 4 03/02/20 25 Active Problems Problem Noted Date Diagnosed Date Hypo-osmolality and hyponatremia 10/28/2024 Vitamin D deficiency, not otherwise specified Type 2 diabetes mellitus with hyperglycemia 11/2020 Hypertension 12/01/2020 Nephrotic syndrome 12/01/2020 Resolved Problems Problem Noted Date Diagnosed Date Resolved Date Hyperlipidemia 12/01/2020 02/13/2022 Hypoalbuminemia 12/01/2020 02/13/2022 Encounters Date Type Department Care Team Description 02/19/2025 Orders Only [facility] [address] [phone] Mary Hayden ARNP Hypertension 02/19/2025 Refill [facility] [address] [phone] Mary Hayden ARNP Hypertension from Last 3 Months Family History Medical History Relation Comments Hypertension [...] Care Team (Late st Contact Info) Description 03/31/2025 Orders Only [facility] [address] [phone] Mary Hayden ARNP [address] [phone] Hypertension; Hypo-osmolality and hyponatremia 04/27/2025 10:15 AM EDT [facility] [address] [phone] Mary Hayden ARNP [address] [phone] Health Maintenance Due Date Last Done Comments Pneumococcal Vaccine: 50+ Years (1 of 2 - PCV) 1977 Colorectal Cancer Screening: Annual FOBT 2007 Colorectal Cancer Screening: Colonoscopy 2007 Colorectal Cancer Screening: Sigmoidoscopy 2007 Diabetes: Ophthalmology Exam 08/03/2021 Diabetes: Pedal Pulse Checked 08/03/2021 Diabetes: Sensory Foot Exam 08/03/2021 Diabetes: Visual Foot Exam 08/03/2021 Diabetes: Hemoglobin A1C 03/28/2025 025, 06/09/2024, 04/09/2024, Additional history exists Influenza Vaccine Completed 06/16/2024 [...] EDT) Sodium 135 133 - 145 mmol/L [facility] Potassium 3.9 3.5 - 5.5 mmol/L [facility] Chloride 103 96 - 110 mmol/L [facility] Bicarbonate (CO2) 27 21 - 32 mmol/L [facility] Anion Gap 5 3 - 11 [facility] Glucose 140(H) 70 - 100 mg/dL [facility] BUN 15 5 - 25 mg/dL [facility] Creatinine Serum 1.07 0.70 - 1.30 mg/dL [facility] eGFR 77 >=60 mL/min/1. 73m2 [facility] Comment:Calculation based on the Chronic Kidney Disease Epidemiology Collaboration (CKD-EPI) equation refit without adjustment for race. BUN/Creatinine Ratio 14.0 [facility] Calcium 9.3 8.5 - 10.5 mg/dL [facility] Blood specimen (specimen) Venous blood / Unknown 12/26/2024 10:04 AM EDT 12/26/2024 11:14 AM EDT Mary Hayden [facility] BLOOD ORDERABLES Final Result [facility] [address] [place] [address] * (ABNORMAL) Hemoglobin A1c (04/09/2024 10:40 AM EDT) Hemoglobin A1C 6.5(H) 4.8 - 5.6 % [facility] Comment: Prediabetes: 5.7 - 6.4 Diabetes: >6.4 Glycemic control for adults with diabetes: <7.0 Blood specimen (specimen) Venous blood / Unknown 04/09/2024 10:40 AM EDT 04/09/2024 Mary Hayden [facility] BLOOD ORDERABLES Final Result [facility] [address] [place] [phone] from Last 3 Months or Most Recently Relevant to Health Maintenance Insurance Medicare Medicaid [place] Care Teams Appliance Tester Relationship Specialty Start Date End Date Tito Ritter MD [address] [place] [id number] PCP - General 10/11/20
== END 2025-03-25 10:10 | disposition home or self-care (01) ==
LOC: HO.NEURO 10:09
PROVIDERS: PCP Internal Medicine; Visit Provider Psychiatry & Neurology Neurology
DX: G24.8 Other dystonia (principal); R94.131 Abnormal electromyogram [EMG]
CPT/HCPCS: 95886; 95909

== ENCOUNTER → 2025-03-25 10:12 | Outpatient (BNV) | payer MEDICARE, MEDICAID, SELFPAY | PROVIDERS: PCP Internal Medicine; Visit Provider Physical Medicine & Rehabilitation | DX: G56.01 Carpal tunnel syndrome, right upper limb (principal); R25.1 Tremor, unspecified | CPT/HCPCS: 95886; 95909 ==

== ENCOUNTER 2025-04-07 13:01 | Outpatient (RCR) | payer MEDICARE, MEDICAID, SELFPAY ==
--- NOTE | 2025-03-04 13:25 | MHC.OT.EP ---
[address] [phone] Occupational Therapy Plan of Care Patient Name: Adonay Celestin Date of Evaluation: 03/04/25 Diagnosis: Right hand tremor Pain Location: Denies pain Reports muslcle tightness in volar forearm Aggravating Factors: Stress, anger Alleviating Factors: None reported Assessment: Pt is a 64 y/o right hand male referred to OT with right hand tremor. He reports they have been happening for about a year, worse when he is writing, eating, or drinking. He notices they are also worse with anxiety and anger. He has difficulty with initiating writing and has noticed decrease in FM control. No diagnosis of Parkinson's, although he does have a sister with PD. Pt demonstrates impaired FM control on R>L, decreased gross grasp strength, marked incoordination with rapid alternating movements, and action related tremor. Pt would benefit from skilled OT to address noted barriers, as well as education on stress and tremor management techniques. Pt has also been referred for EMG to evaluate dystonia. Frequency and Duration: The patient will be seen 2x/wk for 6 weeks Short Term Goals: Pt will ID 2 potential triggers for tremor exacerbation and utilize self regulating strategies Improve functional dexterity as evidence by 3 sec improvement on FDT IND with HEP Steam Press Tender Goals: Demo improved initiation and coordination with handwriting IND with AE or techniques to complete self feeding without spilling/dropping Demo improved coordination with bilateral hand use and alternating hand movements Treatment Plan: Therapeutic Exercise Therapeutic Activity Neuro Re-ed Patient Education ADL Training Soft Tissue Mobilization Electronically Signed By: Samanta Saenz, MS OTR/L Please Sign and return to therapist. Thank you once again for your referral.
== END 2025-07-08 14:00 | disposition home or self-care (01) ==
LOC: HO.OTS 13:01
PROVIDERS: Visit Provider Psychiatry & Neurology Neurology
DX: G25.2 Other specified forms of tremor (principal)
CPT/HCPCS: 97110; 97165

== ENCOUNTER 2025-06-29 12:13 | Outpatient (AMB) | payer MEDICARE, MEDICAID, SELFPAY ==
[2025-06-29 12:16] VITALS: BP 158/88; PULSE 82; O2SAT 97; BMI 35.8
--- NOTE | 2025-06-29 12:16 | A.OFFVIS_ITS ---
Vital Signs 06/29/25 12:16 Height 5 ft 10 in Weight 249 lb 8 oz BMI 35.8 BP 158/88 H Blood Pressure Location Rt brachial Position Sitting Pulse 82 Pulse Source Pulse Oximeter Pulse Oximetry (%) 97 Oxygen Delivery Method Room Air Intake Visit Reasons: follow up Intake Note: Follow up coarse tremor and MEDINA on CPAP Silk Weaver Required: No Accompanied by: Self / Same As Patient Allergies morphine Allergy (Unknown, Verified 06/29/25 12:16) Unknown Medication List - Last Reconciled 06/29/25 by Suzanne Tan MD baclofen 10 mg PO BID chlorthalidone 25 mg PO DAILY cholecalciferol (vitamin D3) 50 mcg PO DAILY metformin 1,000 mg PO DAILY omeprazole 20 mg PO DAILY pioglitazone 45 mg PO DAILY semaglutide (Ozempic) mg subcut tadalafil 5 mg PO tamsulosin 0.4 mg PO DAILY valsartan 80 mg PO DAILY HPI Comments Details: 64y/o Right handed male comes for f/u of right hand writers cramp/tremors EMG showed carpal tunnel on the right History form initial visit January 2025-He started noticing action tremors in his Right hand especially when he is writing. The tremors are intermittent , worsens with stress , anxiety. He also notices when he is eating or drinking any activity that needs fine motor coordination. He has not noticed tremors in his left hand. He denies neck pain . His sister has a diagnosis of parkinsons. No problems with gait , no issues with memory . He has on and off sleep issues - frequent arousals , stopped 1 year ago No known head or neck injury He denies any numbness or tingling. [facility] Medical History (Updated 06/29/25 @ 12:48 by Suzanne Tan MD) Carpal tunnel syndrome Obstructive sleep apnea Focal dystonia MEDINA on CPAP Coarse tremors HTN (hypertension) Diabetes Surgical History H/O knee surgery Hx of appendectomy Family History Brother HTN (hypertension) Diabetes Sister Diabetes HTN (hypertension) Social History Alcohol intake: current Patient Tobacco Use Status: Never used Tobacco Physical Exam Vital Signs: Last Vital Signs Pulse 82 06/29/25 12:16 BP 158/88 H 06/29/25 12:16 Pulse Ox 97 06/29/25 12:16 Oxygen Delivery Method Room Air 06/29/25 12:16 BMI result Body Mass Index 35.8 Const Orientation/consciousness: patient oriented x3 Eyes Pupils: Equal, round and reactive pupils present Neuro Other: Right forearm flexors are activated when he starts tow rite c/w possible focal dystonia General: patient oriented x3, gait normal, tone normal, moves all extremities and no focal motor deficits Cranial nerves: Yes Equal, round and reactive pupils present, Yes Bilaterally intact EOM present, Yes Nystagmus not present, Yes Normal facial strength present, Yes Midline tongue present, Yes Symmetric palate elevation present and Yes Ability to bilaterally elevate shoulders present Cognition (Neuro): normal cognition Gait exam (Neuro): Normal gait present Motor exam (neuro): 5/5 motor strength present throughout and Normal motor muscle tone present throughout Deep tendon reflexes (DTR's): Right triceps reflex intensity grade: 1+, Left triceps reflex intensity grade: 1+, Rt Biceps (C5, C6): 1+, Left biceps reflex intensity grade: 1+, Right brachioradialis reflex intensity grade: 1+, Left brachioradialis reflex intensity grade: 1+, Right patellar reflex intensity grade: 1+ and Left patellar reflex intensity grade: 1+ Coordination: [id number] test normal Assessment & Plan Assessment & Plan (1) Coarse tremors: Comment: likely a focal dystonia - writers cramp Code(s): G25.2 - Other specified forms of tremor Category: Medical (2) Obstructive sleep apnea: Comment: not on CPAP Code(s): G47.33 - Obstructive sleep apnea (adult) (pediatric) Category: Medical (3) Carpal tunnel syndrome: Code(s): G56.00 - Carpal tunnel syndrome, unspecified upper limb Category: Medical Qualifiers: Laterality: right Qualified Code(s): G56.01 - Carpal tunnel syndrome, right upper limb Plan OT - hand therapy did not help EMG Right UE c/w carpal tunnel Refer to for botox. Orders: Referrals Physiatry Referral G24.8 - Other dystonia Medications: New [wrist splint] As directed 1 ea 0RF carpal G56.01 - Carpal tunnel syndrome, right upper limb Coding Level of Care Code Est Pt Level 4 (23620) Diagnoses Coarse tremors G25.2 Obstructive sleep apnea G47.33 Carpal tunnel syndrome of right wrist G56.01 Laterality: right
--- OUTSIDE RECORDS SUMMARY | 2025-06-29 13:30 | XMS_ITS ---
Author Name [facility] Unknown Care Team Organization Name Specialty Phone Email Start Date End Da te [facility] 05/20/2025 [facility] Organization Tito Ritter Primary Care 08/08/2022 05/19/20 24
== END 2025-06-29 13:20 | disposition home or self-care (01) ==
LOC: HO.HSMS 12:14
PROVIDERS: PCP Internal Medicine; Visit Provider Psychiatry & Neurology Neurology
DX: G25.2 Other specified forms of tremor (principal); G47.33 Obstructive sleep apnea (adult) (pediatric); G56.01 Carpal tunnel syndrome, right upper limb
CPT/HCPCS: 99214

== ENCOUNTER → 2025-06-29 12:13 | Outpatient (BNVA) | payer MEDICARE, MEDICAID, SELFPAY | PROVIDERS: PCP Internal Medicine; Visit Provider Psychiatry & Neurology Neurology | DX: G47.33 Obstructive sleep apnea (adult) (pediatric) (principal); G25.2 Other specified forms of tremor; G56.01 Carpal tunnel syndrome, right upper limb | CPT/HCPCS: 99212 ==